=== PATIENT | male | born 1970 ===

== ENCOUNTER 2023-03-08 08:11 | Day surgery (SDC) | payer OTHER ==
[~2023-03-08] VITALS: Ht 180.3 cm; Wt 106.3 kg
[2023-03-08] MEDS ORDERED: Flonase 0.05% N16 GM (09:20)
[2023-03-08] MEDS ORDERED: CODACE30 (09:20)
[2023-03-08 10:42] VITALS: BP 138/87
== END 2023-03-08 10:49 | disposition home or self-care (01) ==
LOC: ORSCSDS 08:11 → ORD 09:30 → ORSCSDS 10:49
PROVIDERS: Internal Medicine Gastroenterology
PROC: 0DBL8ZX Excision of Transverse Colon, Via Natural or Artificial Opening Endoscopic, Diagnostic (ICD-10-PCS; principal; 2023-03-08 09:30)
DX: Z12.11 Encounter for screening for malignant neoplasm of colon (principal); K63.5 Polyp of colon; F90.9 Attention-deficit hyperactivity disorder, unspecified type; Z79.899 Other long term (current) drug therapy
CPT/HCPCS: 88305; J2704; J7120

== ENCOUNTER → 2023-11-02 | Outpatient (CLI) | payer OTHER ==
[~2023-11-02] MED LIST: CODACE30; Flonase 0.05% N16 GM
== END | disposition home or self-care (01) ==
LOC: LAB SHORT 09:16
DX: J02.9 Acute pharyngitis, unspecified (principal)
CPT/HCPCS: 87081